=== PATIENT | female | born 1995 | race Caucasian/White ===

== ENCOUNTER 2017-08-09 13:18 | Emergency (ER) | payer SELFPAY ==
[~2017-08-09] VITALS: Ht 162.6 cm; Wt 75.0 kg
[~2017-08-09 13:18] MED LIST: GEOD20CA PO; IMPLANON IMPLANT; ZYPREXA PO
[2017-08-09] MEDS ORDERED: ZOLO25TA PO (13:27)
[2017-08-09] MEDS ORDERED: ABIL10TA8 PO (13:27)
[2017-08-09 13:28] VITALS: BP 111/74; PULSE 91; RESP 16; TEMP 98.8; O2SAT 98
[2017-08-09] MEDS ORDERED: TETANUS/DIPHTHERIA TOXOID ADULT 0.5 ML VIAL IM ONE (13:30)
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
[2017-08-09] MEDS ORDERED: IBUPROFEN 800 MG TAB PO ONE (14:15)
[2017-08-09] MEDS ORDERED: HYDR-3516 PO (14:19)
[2017-08-09] MEDS ORDERED: DICL75TA PO (14:19)
== END 2017-08-09 14:56 | disposition home or self-care (01) ==
LOC: PHEFT 13:18
DX: S10.93XA Contusion of unspecified part of neck, initial encounter (principal); S50.01XA Contusion of right elbow, initial encounter; S40.212A Abrasion of left shoulder, initial encounter; S40.211A Abrasion of right shoulder, initial encounter; S80.212A Abrasion, left knee, initial encounter; S80.211A Abrasion, right knee, initial encounter; F17.200 Nicotine dependence, unspecified, uncomplicated; V18.4XXA Pedal cycle driver injured in noncollision transport accident in traffic accident, initial encounter; Z23 Encounter for immunization
CPT/HCPCS: 70450; 72125; 73060; 73080; 73560; 90471; 90714